=== PATIENT | male | born 1970 | race African-American/Black ===

== ENCOUNTER 2017-12-19 22:01 | Emergency (ER) | payer SELFPAY ==
[~2017-12-19] VITALS: Ht 195.6 cm; Wt 95.3 kg
[2017-12-19] MEDS ORDERED: NKM (22:21)
--- NOTE | 2017-12-19 22:29 | Emergency Room Report ---
History of Present Illness General Chief Complaint: Pain Source: Patient Present Illness HPI Patient presents with several days of left hip pain. There is no trauma. He's having increasing difficulty with walking and the pain is severe and keeps him awake at night. There is no radiation. He's denies any fevers or dysuria. He doesn't know of any history of gout. He took a muscle relaxant from a friend today. No recent trauma. No back pain. He could not weight bear. No chest pain, NVD, URI sy, dyspnea, anxiety. Allergies: Coded Allergies: No Known Allergies (Unverified , 12/19/17) Patient History Past Medical History: see triage record Social History: Denies: smoking Social History Narrative from home Reviewed Nursing Documentation: PMH: Agreed; PSxH: Agreed Nursing Documentation-PM Past Medical History: No Stated History Review of Systems All Other Systems: negative except mentioned in HPI Physical Exam Vital Signs Date Time Temp Pulse Resp B/P (MAP) Pulse Ox O2 Delivery O2 Flow Rate FiO2 12/19/17 22:16 98.2 120 16 123/63 95 Room Air 98.2 Sp02 EP Interpretation: reviewed, normal General Appearance: well appearing, no apparent distress, GCS 15 Head: normocephalic Eyes: bilateral eye normal inspection, bilateral eye PERRL ENT: moist mucus membranes Neck: supple Respiratory: lungs clear, normal breath sounds Cardiovascular #1: regular rate, rhythm Cardiovascular #2: 2+ radial (R), 2+ femoral (L), 2+ dorsalis pedis (L) Gastrointestinal: normal inspection, normal bowel sounds, non tender, no mass, non-distended Genitourinary: no CVA tenderness Musculoskeletal: back normal, normal range of motion, tender - palpation of L hip Neurologic: alert, oriented x3, motor strength/tone normal, DTRs symmetric, sensory intact, cerebellar normal, speech normal Psychiatric: mood/affect normal Skin: normal inspection, warm/dry Medical Decision Making Diagnostic Impression: Primary Impression: Left hip pain Additional Impressions: Calcific tendinitis Asymptomatic pyuria ER Course Patient presents with left hip pain without remember trauma. Differential includes strain, gout, other monoarthritis, septic hip amongst others. The patient will be evaluated with AP pelvis film, left hip film and labs including uric acid. Patient be treated with Toradol. Labs are unremarkable. X-rays show a round calcific areas in either the bursa or the tendons lateral to the L hip. - not present on R. The patient is improved after treatment. He was shown the x-rays and told he needs to follow-up. Able to ambulate with crutches. In review the patient states that he fell off a horse when he was 12 or 13 years old and had injury to his side. As far as he remembers there were no fractures or significant injuries at that time. Urine late return. No symptoms and consider possible contamination. Patient stable for outpatient observation and treatment. Laboratory Tests Test 12/19/17 23:05 12/19/17 23:55 White Blood Count 11.1 K/UL (4.8-10.8) H Red Blood Count 5.94 M/UL (4.70-6.10) Hemoglobin 15.4 G/DL (14.2-18.0) Hematocrit 45.1 % (42.0-52.0) Mean Corpuscular Volume 76 FL (80-99) L Mean Corpuscular Hemoglobin 26.0 PG (27.0-31.0) L Mean Corpuscular Hemoglobin Concent 34.2 G/DL (32.0-36.0) Red Cell Distribution Width 12.4 % (11.6-14.8) Platelet Count 251 K/UL (150-450) Mean Platelet Volume 6.7 FL (6.5-10.1) Neutrophils (%) (Auto) 67.1 % (45.0-75.0) Lymphocytes (%) (Auto) 24.8 % (20.0-45.0) Monocytes (%) (Auto) 6.3 % (1.0-10.0) Eosinophils (%) (Auto) 0.4 % (0.0-3.0) Basophils (%) (Auto) 1.6 % (0.0-2.0) Erythrocyte Sedimentation Rate Pending Sodium Level 138 MMOL/L (136-145) Potassium Level 3.4 MMOL/L (3.5-5.1) L Chloride Level 103 MMOL/L (98-107) Carbon Dioxide Level 28 MMOL/L (21-32) Anion Gap 7 mmol/L (5-15) Blood Urea Nitrogen 15 mg/dL (7-18) Creatinine 1.3 MG/DL (0.55-1.30) Estimate Glomerular Filtration Rate > 60 mL/min (>60) Glucose Level 127 MG/DL (74-106) H Uric Acid 5.7 MG/DL (2.6-7.2) Calcium Level 9.4 MG/DL (8.5-10.1) Total Bilirubin 0.5 MG/DL (0.2-1.0) Aspartate Amino Transferase (AST) 16 U/L (15-37) Alanine Aminotransferase (ALT) 22 U/L (12-78) Alkaline Phosphatase 86 U/L (46-116) Total Protein 7.4 G/DL (6.4-8.2) Albumin 3.2 G/DL (3.4-5.0) L Globulin 4.2 g/dL Albumin/Globulin Ratio 0.8 (1.0-2.7) L Urine Color Yellow Urine Appearance Clear Urine pH 5 (4.5-8.0) Urine Specific [place] 1.020 (1.005-1.035) Urine Protein 1+ (NEGATIVE) H Urine Glucose (UA) Negative (NEGATIVE) Urine Ketones Negative (NEGATIVE) Urine Blood 4+ (NEGATIVE) H Urine Nitrite Negative (NEGATIVE) Urine Bilirubin Negative (NEGATIVE) Urine Urobilinogen 1 MG/DL (0.0-1.0) H Urine Leukocyte Esterase 2+ (NEGATIVE) H Urine RBC 2-4 /HPF (0 - 0) H Urine WBC 20-30 /HPF (0 - 0) H Urine Squamous Epithelial Cells Occasional /LPF Urine Bacteria Few /HPF (NONE) Other X-Ray Diagnostic Results Other X-Ray Diagnostic Results #1: X-Ray ordered: pelvis # of Views/Limited Vs Complete: 1 View Indication: Pain EP Interpretation: Yes Interpretation: no dislocation, no soft tissue swelling, no fractures, other - Ca tednonitis Impression: Other Electronically Signed by: Electronically signed by Leon Daniel MD Other X-Ray Diagnostic Results #2: X-Ray ordered: L hip # of Views/Limited Vs Complete: 2 View Indication: Pain Interpretation: no dislocation, no soft tissue swelling, no fractures, other - calcific tendonitis Impression: Other Electronically Signed by: Electronically signed by Leon Daniel MD Last Vital Signs Date Time Temp Pulse Resp B/P (MAP) Pulse Ox O2 Delivery O2 Flow Rate FiO2 12/20/17 01:10 98.3 109 16 130/86 95 Room Air 98.3 Status: improved Disposition: HOME, SELF-CARE Condition: Improved Scripts Ibuprofen* (MOTRIN*) 600 Mg Tablet 600 MG ORAL Q6H PRN for For Pain, #20 TAB Prov: Leon Daniel M.D. 12/20/17 Tramadol Hcl* (ULTRAM*) 50 Mg Tablet 50 MG ORAL Q6H PRN for For Pain, #10 TAB 0 Refills Prov: Leon Daniel M.D. 12/20/17 Leon Daniel M.D. Dec 19, 2017 22:29
[2017-12-19] MEDS ORDERED: Ketorolac 30mg Inj IV ONE (22:30)
[2017-12-19 23:15] LABS: BASOPHILS % (AUTO) 1.6 % (0.0-2.0); EOSINOPHILS % (AUTO) 0.4 % (0.0-3.0); HEMATOCRIT 45.1 % (42.0-52.0); HEMOGLOBIN 15.4 G/DL (14.2-18.0); LYMPHOCYTES % (AUTO) 24.8 % (20.0-45.0); MEAN CORPUSCULAR VOLUME 76 FL (80-99); MONOCYTES % (AUTO) 6.3 % (1.0-10.0); NEUTROPHILS % (AUTO) 67.1 % (45.0-75.0); PLATELET COUNT 251 K/UL (150-450); RED BLOOD COUNT 5.94 M/UL (4.70-6.10); RED CELL DISTRIBUTION WIDTH 12.4 % (11.6-14.8); WHITE BLOOD COUNT 11.1 K/UL (4.8-10.8)
[2017-12-19 23:27] LABS: ANION GAP 7 mmol/L (5-15); BLOOD UREA NITROGEN 15 mg/dL (7-18); CALCIUM 9.4 MG/DL (8.5-10.1); CARBON DIOXIDE 28 MMOL/L (21-32); CHLORIDE 103 MMOL/L (98-107); CREATININE 1.3 MG/DL (0.55-1.30); POTASSIUM 3.4 MMOL/L (3.5-5.1); SODIUM 138 MMOL/L (136-145)
[2017-12-19 23:32] LABS: ALANINE AMINOTRANSFERASE 22 U/L (12-78); ALBUMIN 3.2 G/DL (3.4-5.0); ALBUMIN/GLOBULIN RATIO 0.8 (1.0-2.7); ALKALINE PHOSPHATASE 86 U/L (46-116); ASPARTATE AMINO TRANSFERASE 16 U/L (15-37); BILIRUBIN,TOTAL 0.5 MG/DL (0.2-1.0)
[2017-12-19 23:45] VITALS: BP 133/88
--- NOTE | 2017-12-19 23:51 | Diagnostic Imaging Report ---
ADDENDUM - Added by Thomas Lemus M.D. on 12/20/2017 1:17 AM (-07:00) Additional information: Chronic ossific/calcific densities adjacent to left greater trochanter. EXAM: XR Left Hip, 2 or 3 Views CLINICAL HISTORY: PAIN TECHNIQUE: Two or three views of the left hip. COMPARISON: No relevant prior studies available. FINDINGS: Bones/joints: No acute displaced fracture or dislocation. Soft tissues: Unremarkable. IMPRESSION: No acute displaced fracture or dislocation.
--- NOTE | 2017-12-19 23:52 | Diagnostic Imaging Report ---
ADDENDUM - Added by Thomas Lemus M.D. on 12/20/2017 1:17 AM (-07:00) Additional information: Chronic ossific/calcific densities adjacent to left greater trochanter. EXAM: XR Pelvis, 1 or 2 Views CLINICAL HISTORY: PAIN TECHNIQUE: Frontal view of the pelvis. COMPARISON: No relevant prior studies available. FINDINGS: Bones/joints: No acute displaced fracture or dislocation. Soft tissues: Unremarkable. IMPRESSION: No acute displaced fracture or dislocation.
[2017-12-20 00:07] LABS: APPEARANCE,URINE CLEAR; BILIRUBIN, URINE NEGATIVE (NEGATIVE); GLUCOSE, URINE (UA) NEGATIVE (NEGATIVE); KETONES,URINE NEGATIVE (NEGATIVE); LEUKOCYTE ESTERASE ,URINE 2+ (NEGATIVE); NITRITE,URINE NEGATIVE (NEGATIVE); PH,URINE 5 (4.5-8.0); PROTEIN,URINE 1+ (NEGATIVE); UROBILINOGEN,URINE 1 MG/DL (0.0-1.0)
[2017-12-20 00:09] LABS: COLOR,URINE YELLOW
[2017-12-20] MEDS ORDERED: IBUPROFEN600 MG ORAL (00:42)
[2017-12-20] MEDS ORDERED: TRAMADOL HCL50 MG ORAL (00:42)
[2017-12-20 01:10] VITALS: BP 130/86
== END 2017-12-20 01:10 | disposition home or self-care (01) ==
LOC: EMR 22:48
DX: M25.552 Pain in left hip (principal); M65.28 Calcific tendinitis, other site; N39.0 Urinary tract infection, site not specified
CPT/HCPCS: 36415; 72170; 73502; 80053; 81001; 84550; 85025; 85651; 87086; 96374; 99284; J1885